=== PATIENT | female | born 1995 | race Two or more races ===

== ENCOUNTER 2016-09-25 16:48 | Emergency (ER) | payer SELFPAY ==
[2016-09-25 17:02] VITALS: BP 126/79
--- NOTE | 2016-09-25 17:39 | PHYS DOC ---
Past Medical History Past Medical History: No Pertinent History Past Surgical History: No Surgical History Alcohol Use: None Drug Use: None Adult General Chief Complaint Chief Complaint: FOOT INJURY PAIN [facility] HPI Patient is a 21 year old female presents to the emergency department stating that she is having right foot pain and right lateral ankle pain and discomfort. She denies any injury or trauma to the ankle or foot area. She states hurting for the last week. She is taken Tylenol for the pain and Discomfort with no relief. She denies any numbness or tingling into the toes. Review of Systems Review of Systems Constitutional: Denies fever or chills [] Eyes: Denies change in visual acuity, redness, or eye pain [] HENT: Denies nasal congestion or sore throat [] Respiratory: Denies cough or shortness of breath [] Cardiovascular: No additional information not addressed in HPI [] GI: Denies abdominal pain, nausea, vomiting, bloody stools or diarrhea [] : Denies dysuria or hematuria [] Musculoskeletal: Denies back pain. Complaint of right ankle pain and foot pain. Integument: Denies rash or skin lesions [] Neurologic: Denies headache, focal weakness or sensory changes [] Endocrine: Denies polyuria or polydipsia [] Allergies Allergies Allergies Coded Allergies Type Severity Reaction Last Updated Verified No Known Drug Allergies 09/25/16 No Physical Exam Physical Exam Constitutional: Well developed, well nourished, no acute distress, non-toxic appearance. [] HENT: Normocephalic, atraumatic, bilateral external ears normal, oropharynx moist, no oral exudates, nose normal. [] Eyes: PERRLA, EOMI, conjunctiva normal, no discharge. [] Neck: Normal range of motion, no tenderness, supple, no stridor. [] Cardiovascular:Heart rate regular rhythm Lungs & Thorax: No respiratory distress noted Skin: Warm, dry, no erythema, no rash. [] Back: No tenderness Extremities: Right ankle tenderness noted on the lateral part. Slight bruising noted no swelling. Patient was swollen on the medial part of the ankle. Patient does have tenderness noted at the plantar fasciitis area., no cyanosis, no clubbing, ROM intact, no edema. [] Neurologic: Alert and oriented X 3, normal motor function, normal sensory function, no focal deficits noted. [] Psychologic: Affect normal, judgement normal, mood normal. [] Current Patient Data Vital Signs Vital Signs Date Time Temp Pulse Resp B/P (MAP) Pulse Ox O2 Delivery O2 Flow Rate FiO2 09/25/16 17:02 98.7 78 16 98 Room Air 98.7 EKG EKG [] Radiology/Procedures Radiology/Procedures [] Course & Med Decision Making Course & Med Decision Making Pertinent Labs and Imaging studies reviewed. (See chart for details) X-ray was negative per . Patient will be placed in an Hansel wrap with recommendations to follow-up with her with a daily Doctor in the next week. Recommended ice packs on 20 minutes off 20 minutes several times a day. Elevation as much as possible. Also recommended ibuprofen 800 mg every 8 hours with food stop taking few develop an upset stomach. Signs and symptoms to return back to emergency department been provided. Also recommended patient to use the ball underneath her foot and rolled the plantar fasciitis area out. Also spoke with patient regards to getting shoes that have good soles and arch support. Patient agrees with discharge instructions, treatment regimens and follow-up recommendations. Since symptoms to return back to emergency department been provided. [] Dragon Disclaimer Dragon Disclaimer This electronic medical record was generated, in whole or in part, using a voice recognition dictation system. Departure Departure Impression: Primary Impression: Pain in right ankle and joints of right foot Disposition: 01 HOME, SELF-CARE Condition: STABLE Referrals: CASANDRA GRAMAJO MD Patient Instructions: Ankle Pain, Plantar Fasciitis Additional Instructions: Your x-rays were negative for any bony abnormalities. Hansel wrap to the right ankle for the next 5-7 days. Ice packs on 20 minutes off 20 minutes and state. Elevation as much as possible. Ibuprofen 800 mg every 8 hours with food. Stop taking few develop upset stomach. Follow-up with orthopedic within the next week. Return back to emergency prior signs symptoms of become worse. ARELI [employer] Sep 25, 2016 17:39
--- NOTE | 2016-09-26 08:29 | RAD ---
Indications: Injury today. Right ankle and right foot pain 3 view right ankle study.: No acute fracture or dislocation or osteolytic process is seen. 3 view right foot study: No acute fracture or dislocation or osteolytic process is seen. IMPRESSION: No acute fracture.
== END 2016-09-25 17:52 | disposition home or self-care (01) ==
LOC: ER 16:48
DX: M25.571 Pain in right ankle and joints of right foot (principal); M79.671 Pain in right foot
CPT/HCPCS: 73610; 73630; 99284-25